=== PATIENT | female | born 1940 | race Caucasian/White ===

== ENCOUNTER 2022-04-29 05:16 | Day surgery (SDC) | payer OTHER ==
[2022-04-22 15:04] LABS: CLARITY,URINE CLEAR (Clear); COLOR,URINE YELLOW (Yellow); GLUCOSE, URINE NEGATIVE (Neg); KETONES,URINE NEGATIVE (Neg); LEUKOCYTE ESTERASE ,URINE NEGATIVE (Neg); NITRITES, URINE NEGATIVE (Neg); OCCULT BLOOD,URINE NEGATIVE (Neg); PH,URINE 6.5 (4.8-8.0); PROTEIN,URINE NEGATIVE (Neg); UROBILINOGEN,URINE 0.2 E.U/dL (0.2-1.0)
[2022-04-22 15:07] LABS: UA COLLECTION TYPE CLN CATCH MIDSTREAM
[2022-04-22 15:16] LABS: BASOPHILS # (AUTO) 0.1 X10'3 (0-0.2); BASOPHILS % (AUTO) 1.1 % (0-1); EOSINOPHILS # (AUTO) 0.1 X10'3 (0-0.9); EOSINOPHILS % (AUTO) 1.7 % (0-6); LYMPHOCYTES # (AUTO) 1.1 X10'3 (1.1-4.8); LYMPHOCYTES % (AUTO) 15.5 % (21-51); MEAN CORPUSCULAR HEMOGLOBIN 30.2 PG (27.0-31.0); MEAN CORPUSCULAR HGB CONC 33.3 g/dL (33.0-36.5); MEAN CORPUSCULAR VOLUME 90.7 FL (78-98); MONOCYTES # (AUTO) 0.9 X10'3 (0-0.9); MONOCYTES % (AUTO) 12.2 % (2-12); NEUTROPHILS % (AUTO) 69.5 % (42-75); PRE OP HEMATOCRIT 39.5 % (35.0-45.0); PRE OP HEMOGLOBIN 13.1 g/dL (12.0-16.0); PRE OP PLATELET COUNT 237 X10'3 (140-440); RED BLOOD COUNT 4.35 X10'6 (4.20-5.60); RED CELL DISTRIBUTION WIDTH 14.2 % (11.5-14.5)
[2022-04-22 15:22] LABS: ALBUMIN 3.7 G/DL (3.4-5.0); ALBUMIN/GLOBULIN RATIO 0.9 (1.1-1.5); ALKALINE PHOSPHATASE 103 IU/L (46-116); BLOOD UREA NITROGEN 13 MG/DL (7-18); BUN/CREATININE RATIO 16.9 (6.6-38.0); CALCIUM 9.2 MG/DL (8.5-10.1); CHLORIDE 102 MMOL/L (99-107); CREATININE 0.77 MG/DL (0.40-0.90); PRE OP ALT 23 U/L (30-65); PRE OP ANION GAP 4 (8-16); PRE OP AST 23 U/L (10-37); PRE OP BILIRUB, TOTAL 0.3 MG/DL (0.0-1.0); PRE OP GLUCOSE 89 MG/DL (70-104); PRE OP POTASSIUM 4.3 MMOL/L (3.4-5.1); PRE OP SODIUM 139 MMOL/L (135-145); TOTAL CARBON DIOXIDE 32.7 MMOL/L (24-32); TOTAL PROTEIN 7.8 G/DL (6.4-8.2); eGFR 72 ML/MIN
[2022-04-29] VITALS (13 sets, daily range): BP systolic 109–156; BP diastolic 69–85
[~2022-04-29] VITALS: Ht 165.1 cm; Wt 89.5 kg
[~2022-04-29 05:16] MED LIST: CA C1TAB89 PO; CHOL400T32 PO; CYAN500T71 PO; LEVO112T5 PO; MAGN400C PO; MULT-1085 PO; OMEG1CAP13 PO; UBID300C PO; VITC500T PO; ringers solution, lacted 1,000 ML IV SCH
[2022-04-29] MEDS ORDERED: ceFAZolin inj. 2,000 MG in dextrose 5%-water 100 ML IV ONE (05:30)
[2022-04-29] MEDS ORDERED: famotidine 20mg tablet PO ONE (05:30)
[2022-04-29] MEDS ORDERED: bacitracin 15gm ointment TP ONE (06:47)
[2022-04-29] MEDS ORDERED: BUPIVAcaine/PF 2.5 mg/ml (0.25%) 30ml vial ONE (06:47)
[2022-04-29] MEDS ORDERED: cloNIDine hcl/PF 100mcg/ml inj ONE (07:08)
[2022-04-29] MEDS ORDERED: fentaNYL/PF 50MCG/1 ML 2ML syringe ONE (07:13)
[2022-04-29] MEDS ORDERED: midazolam 1 mg/ML 2ml injection ONE (07:14)
[2022-04-29] MEDS ORDERED: sevoflurane 250ml liquid IH ONE (07:21)
[2022-04-29] MEDS ORDERED: morphine 2 MG/ML inj. syringe IV PRN (08:05)
[2022-04-29] MEDS ORDERED: ondansetron/PF 4mg/2ml inj IV PRN (08:05)
[2022-04-29] MEDS ORDERED: HYDROmorphone/PF 0.2 MG/ML SYRINGE IV PRN ×2 (08:05)
[2022-04-29] MEDS ORDERED: ringers solution, lacted 1,000 ML IV SCH (08:05)
[2022-04-29] MEDS ORDERED: ROPIVAcaine 0.2% (10 MG/5 ML) BOLUS INJECTION POPLITEAL PRN (08:20)
[2022-04-29] MEDS ORDERED: ROPIVAcaine 0.2%/PF PUMP/bolus 545 ML POPLITEAL SCH (08:20)
[2022-04-29] MEDS ORDERED: glycopyrrolate 0.2mg/ml inj ONE (10:09)
[2022-04-29] MEDS ORDERED: dexamethasone sod phosphate 4mg/ml inj. ONE (10:09)
[2022-04-29] MEDS ORDERED: ondansetron/PF 4mg/2ml inj ONE (10:09)
[2022-04-29] MEDS ORDERED: propofol inj 20 ML IV ONE (10:09)
[2022-04-29] MEDS ORDERED: neostigmine methylsulfate 1 MG/ML 10ml vial ONE (10:09)
[2022-04-29] MEDS ORDERED: acetaminophen 1,000mg/100ml IV 100 ML IV ONE (10:09)
[2022-04-29] MEDS ORDERED: rocuronium 10mg/ml inj IV ONE (10:09)
[2022-04-29] MEDS ORDERED: ePHEDrine 50MG/ML INJ. ONE (10:09)
--- NOTE | 2022-04-29 10:36 | NUR ---
Received from OR via [facility], accompanied by Anesthesiologist DR CASILLAS and report given by Anesthesiolgist. PATIENT WITH 20G PIV SPLINT TO RLE, +CAP REFILL <3 SECONDS, TOES PWD, FOOT OF BED ELEVATED, 10 LITER MASK ON WITH 100% SATURATION, DENIES PAIN WILL CONTINUE TO MONITOR. NO DRAINAGE TO BANDAGE Addendum: 04/29/22 at 1058 by Denis Katz RN, RN Amended: Links added.
--- NOTE | 2022-04-29 12:29 | NUR ---
CARE TURNED OVER TO [facility]ILL[facility] LANGLEY. TAKING PATIENT TO PAS UNIT Addendum: 04/29/22 at 1229 by Denis Katz RN, RN Amended: Links added.
--- NOTE | 2022-04-29 12:30 | NUR ---
ASSUMED CARE OF PATIENT. WILL DISCHARGE FROM THE PAS UNIT
--- NOTE | 2022-04-29 13:36 | NUR ---
PATIENT MEETS DISCHARGE CRITERIA. VSS, IV DC'D NO ISSUES. WHEELED PATIENT AND HER BELONGINGS TO THE CAR. ASSISTED PATIENT INTO THE CAR SEAT AND PLACED HER BELONGINGS INCLUDING. HER CANE, 2 BAGS, AN ELEVATION FOAM DEVICE. Addendum: 04/29/22 at 1418 by Cate Valero RN Amended: Links added.
--- NOTE | 2022-04-29 13:36 | NUR ---
PATIENT MEETS DISCHARGE CRITERIA. VSS. IV DC'D. PATIENT AND HER BELONGINGS INCLUDING HER 2 BAGS, CANE, AND FOAM ELEVATION DEVICE WENT WITH PATIENT. WHEELED PATIENT TO THE FRONT DOOR AND ASSISTED HER TO THE CAR.
== END 2022-04-29 13:36 | disposition home or self-care (01) ==
LOC: PAS 05:16
PROVIDERS: ATTEND Podiatrist Foot & Ankle Surgery
DX: S92.001A Unspecified fracture of right calcaneus, initial encounter for closed fracture (principal); S82.401A Unspecified fracture of shaft of right fibula, initial encounter for closed fracture; M25.374 Other instability, right foot; M19.071 Primary osteoarthritis, right ankle and foot; X58.XXXA Exposure to other specified factors, initial encounter; Y93.89 Activity, other specified; Y92.89 Other specified places as the place of occurrence of the external cause; Y99.8 Other external cause status; Z79.899 Other long term (current) drug therapy; Z98.49 Cataract extraction status, unspecified eye; Z90.710 Acquired absence of both cervix and uterus
CPT/HCPCS: 27641; 28725; 36415; 64450; 73620; 76942; 80053; 81003; 82948; 85025; 87811; 93005; A6223; C1713; C1762; J0131; J0690; J0735; J1100; J2250; J2405; J2704; J2710; J2795; J3010; J3490; J7030; J7060; J7120; Z7506; Z7508; 76000; A4618; A6253; A6449; A7000; C1769